=== PATIENT | female | born 1980 | race African-American/Black ===

== ENCOUNTER 2018-10-07 17:21 | Emergency (ER) | payer MEDICAID ==
[~2018-10-07] VITALS: Ht 157.5 cm; Wt 106.0 kg
[~2018-10-07 17:21] MED LIST: NAPR220C15
[2018-10-07] MEDS ORDERED: IBUPROFEN 800MG TABLET PO ONE (22:30)
[2018-10-07 23:19] VITALS: BP 148/85
== END 2018-10-07 23:20 | disposition home or self-care (01) ==
LOC: ER 17:21
DX: H60.92 Unspecified otitis externa, left ear (principal); J45.909 Unspecified asthma, uncomplicated; F12.10 Cannabis abuse, uncomplicated; F17.200 Nicotine dependence, unspecified, uncomplicated
CPT/HCPCS: 99283

== ENCOUNTER 2018-10-11 01:27 | Emergency (ER) | payer MEDICAID ==
[~2018-10-11] VITALS: Ht 157.5 cm; Wt 107.0 kg
[2018-10-11] MEDS ORDERED: PREDNISONE 20MG TABLET PO STA (02:31)
[2018-10-11] MEDS ORDERED: DIPHENHYDRAMINE 25MG CAPSULE PO ONE (02:45)
[2018-10-11] MEDS ORDERED: FAMOTIDINE 20MG TABLET PO ONE (02:45)
[2018-10-11 05:04] VITALS: BP 126/78
== END 2018-10-11 05:05 | disposition home or self-care (01) ==
LOC: ER 01:27
DX: L03.114 Cellulitis of left upper limb (principal); T63.481A Toxic effect of venom of other arthropod, accidental (unintentional), initial encounter; Y92.89 Other specified places as the place of occurrence of the external cause; F17.200 Nicotine dependence, unspecified, uncomplicated; F12.10 Cannabis abuse, uncomplicated; J45.909 Unspecified asthma, uncomplicated; Z98.890 Other specified postprocedural states
CPT/HCPCS: 81025; 99283; J7512

== ENCOUNTER 2019-01-24 18:58 | Emergency (ER) | payer SELFPAY ==
[~2019-01-24] VITALS: Ht 157.5 cm; Wt 104.2 kg
[2019-01-24] MEDS ORDERED: KETOROLAC 30MG/ML VIAL IM ONE (20:30)
[2019-01-24 22:44] VITALS: BP 120/87
== END 2019-01-24 23:00 | disposition home or self-care (01) ==
LOC: ER 18:58
DX: M25.561 Pain in right knee (principal); F17.200 Nicotine dependence, unspecified, uncomplicated
CPT/HCPCS: 73562; 81025; 96372; 99283; J1885; L1830

== ENCOUNTER 2024-08-29 09:40 | Inpatient (IN) | payer OTHER, BC ==
[~2024-08-29] VITALS: Ht 157.5 cm; Wt 106.6 kg
[2024-08-29] MEDS ORDERED: VANCOMYCIN 1G PREMIX 200 ML IV ONE (11:45)
[2024-08-29] MEDS: CEFTRIAXONE 1GM/50ML 50 ML IV ONE (12:36)
[2024-08-29] MEDS: SODIUM CHLORIDE 0.9% 1,000 ML IV ONE (12:37)
[2024-08-29 12:43] LABS: BASOPHILS % 0.5 % (0.0-2.0); DIFFERENTIAL COMMENT 0; EOSINOPHILS % 2.7 % (0.0-5.0); HEMATOCRIT. 37.6 % (36.0-48.0); HEMOGLOBIN. 12.1 g/dL (12.0-16.0); LYMPHOCYTES % 16.8 % (20.0-50.0); MEAN CORPUSCULAR HEMOGLOBIN 25.6 pg (28.0-32.0); MEAN CORPUSCULAR HGB CONC 32.3 g/dL (31.0-37.0); MEAN CORPUSCULAR VOLUME 79.3 fL (81.0-99.0); MEAN PLATELET VOLUME 8.4 fl (7.4-10.4); MONOCYTES % 7.9 % (2.0-8.0); NEUTROPHILS % 72.1 % (40.0-76.0); PLATELET 335 x1000/uL (130-400); RED BLOOD CELL COUNT 4.74 mill/uL (4.2-5.4); RED CELL DISTRIBUTION WIDTH 15.2 % (11.6-14.6); WHITE BLOOD COUNT 8.9 x1000/uL (4.5-11.0)
[2024-08-29 12:45] LABS: CHLORIDE 109 mEq/L (98-107); POTASSIUM 3.6 mEq/L (3.5-5.1); SODIUM 140 mEq/L (136-145)
[2024-08-29 12:46] LABS: CARBON DIOXIDE 25 mEq/L (21-32)
[2024-08-29 12:47] LABS: CALCIUM 9.2 mg/dL (8.7-10.4)
[2024-08-29 12:51] LABS: CREATININE 0.8 mg/dL (0.6-1.0)
[2024-08-29 12:52] LABS: GLUCOSE 87 mg/dL (70-105); UREA NITROGEN BLOOD 6 mg/dL (9-23)
[2024-08-29 12:53] LABS: ALANINE AMINOTRANSFERASE 23 IU/L (10-49); ALBUMIN 4.1 g/dL (3.2-4.8); ASPARTATE AMINOTRANSFERASE 16 IU/L (<34)
[2024-08-29 12:54] LABS: BILIRUBIN DIRECT 0.1 mg/dL (<=3.0); BILIRUBIN TOTAL 0.4 mg/dL (0.1-1.0); PROTEIN TOTAL 7.3 g/dL (6.0-8.3)
[2024-08-29] MEDS: VANCOMYCIN 1000MG/250ML 250 ML IV NR (13:13)
[2024-08-29] MEDS: KETOROLAC 30MG/ML VIAL IV STA (13:14)
[2024-08-29 13:52] LABS: CLARITY URINE CLOUDY (CLEAR); COLOR URINE DARK YELLOW (YELLOW); GLUCOSE URINE NEGATIVE (NEGATIVE); KETONES URINE TRACE (NEGATIVE); LEUKOCYTE ESTERASE URINE TRACE (NEGATIVE); NITRITE URINE NEGATIVE (NEGATIVE); OCCULT BLOOD URINE 3+ (NEGATIVE); PH URINE 5.5 (4.5-8.0); PROTEIN URINE 1+ (NEGATIVE); SPECIFIC GRAVITY URINE 1.028 (1.005-1.030)
[2024-08-29 13:58] LABS: HCG SCREEN NEGATIVE
[2024-08-29 14:18] LABS: SQUAMOUS EPITHELIAL CELL URINE 2+ /lpf (RARE/1+)
[2024-08-29 14:20] LABS: BACTERIA URINE TRACE; RBC URINE TNTC /hpf (0-2); WBC URINE 0-2 /hpf (0-2)
[2024-08-29 15:20] VITALS: BP 162/89; PULSE 63; RESP 20; TEMP 36.8072
[2024-08-29 15:37] VITALS: BP 162/89; PULSE 63; RESP 20; TEMP 36.78072; O2SAT 100
[2024-08-29] MEDS ORDERED: DOCUSATE SODIUM 100MG CAPSULE PO PRN (15:45)
[2024-08-29] MEDS ORDERED: ACETAMINOPHEN 325MG TABLET PO PRN (15:45)
[2024-08-29] MEDS ORDERED: ONDANSETRON HCL 4MG/2ML INJ IV PRN (15:45)
[2024-08-29] MEDS ORDERED: IPRATROPIUM/ALBUTEROL 0.5-3(2.5)MG/3ML NEB HHN PRN (16:00)
[2024-08-29] MEDS ORDERED: KETOROLAC 15MG/ML VIAL IV PRN (16:00)
[2024-08-29 20:00] VITALS: BP 193/95; PULSE 69; RESP 18; TEMP 36.28068; O2SAT 98
[2024-08-29] MEDS: VANCOMYCIN 1000MG/250ML 250 ML IV SCH (20:25)
[2024-08-29] MEDS: CLONIDINE 0.1MG TABLET PO PRN (20:41)
[2024-08-30] VITALS (7 sets, daily range): BP systolic 122–161; BP diastolic 68–99; PULSE 57–72; RESP 18–19; TEMP 36.28068–36.61404; O2SAT 96–99
[2024-08-30 08:17] LABS: HEMATOCRIT 34.5 % (36.0-48.0); HEMOGLOBIN 11.1 g/dL (12.0-16.0); MEAN CORPUSCULAR HEMOGLOBIN 25.6 pg (28.0-32.0); MEAN CORPUSCULAR HGB CONC 32.1 g/dL (31.0-37.0); MEAN CORPUSCULAR VOLUME 79.7 fL (81.0-99.0); PLATELET 283 x1000/uL (130-400); RED BLOOD CELL COUNT 4.33 mill/uL (4.2-5.4); WHITE BLOOD COUNT 7.3 x1000/uL (4.5-11.0)
[2024-08-30 08:29] LABS: CHLORIDE 111 mEq/L (98-107); POTASSIUM 4.3 mEq/L (3.5-5.1); SODIUM 140 mEq/L (136-145)
[2024-08-30 08:30] LABS: CARBON DIOXIDE 23 mEq/L (21-32)
[2024-08-30 08:31] LABS: CALCIUM 8.8 mg/dL (8.7-10.4)
[2024-08-30 08:35] LABS: CREATININE 0.7 mg/dL (0.6-1.0)
[2024-08-30 08:36] LABS: GLUCOSE 90 mg/dL (70-105); UREA NITROGEN BLOOD 6 mg/dL (9-23)
[2024-08-30] MEDS: NICOTINE 14MG PATCH TD SCH (08:54)
[2024-08-30] MEDS: AMLODIPINE 2.5MG TABLET PO SCH (08:54)
[2024-08-30] MEDS: VANCOMYCIN 1GM PMX (XELLIA) 200 ML IV SCH (21:16)
[2024-08-31] VITALS: BP 126/87; PULSE 72; RESP 20; TEMP 36.28068; O2SAT 98
[2024-08-31 04:00] VITALS: BP 145/73; PULSE 56; RESP 20; TEMP 36.28068; O2SAT 98
[2024-08-31 08:00] VITALS: BP 143/85; PULSE 70; RESP 20; TEMP 36.16956; O2SAT 98
[2024-08-31] MEDS: ACETAMINOPHEN 325MG TABLET PO PRN (08:33)
[2024-08-31 08:39] LABS: BASOPHILS % 0.5 % (0.0-2.0); DIFFERENTIAL COMMENT 0; EOSINOPHILS % 4.1 % (0.0-5.0); HEMATOCRIT. 36.8 % (36.0-48.0); HEMOGLOBIN. 11.7 g/dL (12.0-16.0); LYMPHOCYTES % 21.1 % (20.0-50.0); MEAN CORPUSCULAR HGB CONC 31.8 g/dL (31.0-37.0); MEAN CORPUSCULAR VOLUME 78.6 fL (81.0-99.0); MONOCYTES % 7.7 % (2.0-8.0); NEUTROPHILS % 66.6 % (40.0-76.0); PLATELET 319 x1000/uL (130-400); RED BLOOD CELL COUNT 4.68 mill/uL (4.2-5.4); RED CELL DISTRIBUTION WIDTH 15.1 % (11.6-14.6); WHITE BLOOD COUNT 7.1 x1000/uL (4.5-11.0)
[2024-08-31 08:56] LABS: CHLORIDE 111 mEq/L (98-107); POTASSIUM 3.8 mEq/L (3.5-5.1); SODIUM 140 mEq/L (136-145)
[2024-08-31 08:57] LABS: CARBON DIOXIDE 25 mEq/L (21-32)
[2024-08-31 09:02] LABS: CREATININE 0.6 mg/dL (0.6-1.0); GLUCOSE 79 mg/dL (70-105); UREA NITROGEN BLOOD 8 mg/dL (9-23)
[2024-08-31] MEDS: AMLODIPINE 2.5MG TABLET PO ONE (11:56)
[2024-08-31 12:00] VITALS: BP 137/62; PULSE 76; RESP 19; TEMP 36.16956; O2SAT 98
[2024-08-31] MEDS ORDERED: AMLO5TAB88 PO (13:52)
[2024-08-31] MEDS ORDERED: LINE600T14 PO (13:52)
[2024-08-31 16:00] VITALS: BP 168/90; PULSE 72; RESP 20; TEMP 36.72516; O2SAT 97
[2024-08-31 16:04] VITALS: BP 168/90; PULSE 20; TEMP 98.1; O2SAT 97
[2024-08-31] MEDS ORDERED: VANCOMYCIN 1.25GM PMX (XELLIA) 250 ML IV SCH (21:00)
== END 2024-08-31 17:35 | disposition home or self-care (01) | DRG 605 ==
LOC: ER 09:40 → EDBEDREQTM 14:32 → EDBEDREQ 14:32 → 6WST 15:32
PROVIDERS: ADMIT Internal Medicine; ATTEND Internal Medicine
PROC: 0HBGXZZ Excision of Left Hand Skin, External Approach (ICD-10-PCS; principal; 2024-08-29)
DX: S61.231A Puncture wound without foreign body of left index finger without damage to nail, initial encounter (principal); Z16.11 Resistance to penicillins; Z68.41 Body mass index [BMI] 40.0-44.9, adult; L03.012 Cellulitis of left finger; X58.XXXA Exposure to other specified factors, initial encounter; I10 Essential (primary) hypertension; E66.9 Obesity, unspecified; E66.01 Morbid (severe) obesity due to excess calories; F17.210 Nicotine dependence, cigarettes, uncomplicated; Y93.89 Activity, other specified; Y92.89 Other specified places as the place of occurrence of the external cause; Y99.8 Other external cause status
CPT/HCPCS: 36415; 73130; 80048; 80061; 80076; 80202; 81003; 83036; 83605; 84145; 84703; 85025; 85027; 87070; 99285; C1893; J0696; J1885; J3370; J7030